=== PATIENT | female | born 1970 | race Caucasian/White ===

== ENCOUNTER → 2018-02-19 | Day surgery (SDC) | payer OTHER ==
[~2018-02-19] MED LIST: ACETAMINOPHEN 1,000 MG/100 ML BTL IV ONE; BUPIVACAINE 0.5% (5MG/ML) PF 30ML VIAL IVP ONE; BUPIVACAINE 0.5% W/EPI MPF 30 ML VIAL IVP ONE; BUPIVACAINE LIPOSOME/PF 133MG/10ML VIAL IV ONE; CLINDAMYCIN PHOS/D5W 900MG 900 MG/50 ML BAG IVPB ONE; DEXAMETHASONE 4 MG/ML 1ML VIAL IVP ONE; FENTANYL PF 100MCG/2ML VIAL IV ONE; LIDOCAINE 2% MDV (20MG/ML) 20ML VIAL IV ONE; METHYLPREDNISOLONE 40MG/VIAL IM ONE; MIDAZOLAM HCL 2MG/2ML VIAL IV ONE; MORPHINE SULFATE 4 MG/ML VIAL ONE; MORPHINE SULFATE PF 10MG/10ML VIAL IV ONE; ONDANSETRON HCL IV 4 MG/2 ML VIAL IVP ONE; PHENYLEPHRINE HCL 10 MG/ML VIAL IVP ONE; PROPOFOL 10 MG/ML VIAL IV ONE; SEVOFLURANE 250 ML INH ONE
--- NOTE | 2018-02-19 16:20 | Operative Note ---
DATE OF SURGERY: 02/19/2018 Surgeon: Jakob Reaves M.D. PREOPERATIVE DIAGNOSIS: Right shoulder impingement, question tear of the rotator cuff. POSTOPERATIVE DIAGNOSES: 1. Small complete tear of the rotator cuff. 2. Profound external impingement right shoulder. 3. Anterior superior labral tear. 4. Arthrosis right distal clavicle. OPERATION: 1. 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 2. Right shoulder arthroscopy with intra-articular debridement. 3. Right shoulder open acromioplasty, CA ligament resection, and subacromial bursectomy. 4. Right shoulder distal clavicle resection. Anesthesia: General. PREPARATION: Chloraprep. Individual considerations: None. PROCEDURE: The patient was taken to the operating room and placed supine on the operating room table. She had a successful induction of a general anesthetic. She was then placed in a semi-seated beach chair position and her right arm and shoulder were prepped and draped in the usual fashion. Examination under anesthesia showed no instability. The patient had a posterior portal identified for arthroscopy. The skin was again infiltrated with 0.5% Marcaine with epinephrine. An 18 gauge spinal needle was easily placed in the joint and the joint was inflated with normal saline. A stab wound was made and a blunt-tipped trocar for the scope was easily placed in the joint. The joint was inflated with normal saline. An anterior accessory portal was then made just inferior to the intact long head of the biceps tendon in a retrograde fashion with a Wissinger fernando and the joint was irrigated out. The patient had what appeared to be at least a partial tear of the rotator cuff underneath. This was smoothed off with the shaver, fraying of the labrum anterior superiorly, but no peripheral detachment. The long head was intact, the glenohumeral joint was intact, no significant synovitis. The labral tear was debrided. After irrigation, the portals were closed with klaudia. The patient had an anterior approach of the subacromial space and distal clavicle. The skin was again infiltrated with 0.5% Marcaine with epinephrine prior. Sharp dissection carried down through the skin and subcutaneous tissues, small veins were coagulated with a Bovie. An anterior deltoid interval was developed. Care was taken not to split the deltoid more than about 4 cm distal to the anterior tip of the acromion to prevent injury to the axillary nerve. Once in the subacromial space there was a bit of fluid. She had a very tight subacromial space. The deltoid was then taken subperiosteally off of the anterior aspect of the downsloping distal clavicle, over the top of the intact CA ligament and off the anterior aspect of the highly degenerated distal clavicle. The CA ligament was resected with a Bovie. The distal clavicle was resected with an off-setting saw. She had the acromioplasty, taking about 1 cm, most of this being spur anteriorly and tapering to a wedge posterior medially to include the spurs of the AC joint. The undersurface was then smoothed with a rasp. A very thick bursa was debrided out. I now had a good look at the rotator cuff which looked contused and there was a pinhole tear near the spurs of the AC joint and this was fixed with a 2-0 Vicryl. After irrigation, I made sure there was no further impingement. The deltoid was then re-attached to the remaining acromion with multiple interrupted #2 Vicryl going directly through the bony acromion. The periosteal cuff of the distal clavicle was closed with running #2 Vicryl. The anterior deltoid interval was closed with a running #1 Vicryl and the subq was closed with #2-0 Plus Vicryl, and the skin was closed with running 3-0 Quill. I placed an 18 gauge needle into the subacromial space and injected about 15 mL of 0.5% Marcaine with epinephrine along with 10 mg of morphine and 40 mg of Depo-Medrol. The patient had a sterile bulky compression dressing applied and sling. The patient tolerated the procedures well. The needle and sponge counts were correct. Estimated blood loss was minimal. She was taken back to recovery in good condition. There were no complications. JOHNNY
== END | disposition home or self-care (01) ==
LOC: SUR 09:24
PROVIDERS: ATTEND Orthopaedic Surgery
DX: M75.121 Complete rotator cuff tear or rupture of right shoulder, not specified as traumatic (principal); S43.431A Superior glenoid labrum lesion of right shoulder, initial encounter; M19.019 Primary osteoarthritis, unspecified shoulder
CPT/HCPCS: 23412; 23125; 23415; 29805; 01610; 81025; J2405; J3010; J3490; C9290; J1030; J2270; J2370

== ENCOUNTER 2018-03-05 12:35 | Day surgery (SDC) | payer OTHER ==
[2018-03-05] MEDS ORDERED: BUPIVACAINE 0.5% W/EPI MPF 30 ML VIAL IVP ONE (12:36)
[2018-03-05] MEDS ORDERED: LIDOCAINE 1% W/EPI 1:200,000 MPF 30ML SQ ONE (12:36)
--- NOTE | 2018-03-06 11:40 | Operative Note ---
DATE OF SURGERY: 03/05/2018 PREOPERATIVE DIAGNOSIS: Wound dehiscence, right shoulder. POSTOPERATIVE DIAGNOSIS: Wound dehiscence, right shoulder. OPERATION: Wound debridement with secondary wound closure. Staff Surgeon: Jakob Reaves MD Anesthesia: Local. Preparation: Chloraprep. Individual Considerations: None. PROCEDURE: The patient was taken to the operating room and placed supine on the operating room table. Her right shoulder was prepped and draped in the usual fashion. The patient had a 50/50 mixture of 0.5% Marcaine with epinephrine and 1% lidocaine with epinephrine infiltrated around the wound. The shoulder wound was about 4 to 4.5 cm long. I then took sharp dissection and went just next to the skin edges about 2 mm and then into the subcu and resected the dehisced area. After irrigation, I went and closed it with running 3-0 quill reinforced with simply nylon sutures and a small sterile dressing was applied. She was taken back to recovery in good condition. There were no complications. JOHNNY
== END 2018-03-05 15:07 | disposition home or self-care (01) ==
LOC: SUR 12:35
PROVIDERS: ATTEND Orthopaedic Surgery
DX: T81.31XA Disruption of external operation (surgical) wound, not elsewhere classified, initial encounter (principal)
CPT/HCPCS: 81025